=== PATIENT | female | born 1930 | race Caucasian/White ===

== ENCOUNTER 2016-11-17 10:45 | Emergency (ER) | payer OTHER ==
--- NOTE | 2016-11-17 12:58 | ED ORDER SUMMARY ---
..... Patient: AJNAE RIZZO OrderSheet [facility] VisitID: [id number] [place] [address] 86y, F Registration Date/Time: 11/17/2016 ORDER SHEET Weight: 68.0 kg (stated) Allergies: Oxycodone GENERAL ORDERS: UA-Culture if indicated Urgent (11:11/17/2016 Edi SAM) (Ack 11:08 Héctor) (11:11 SRoberts R.N.) CBC w Diff Urgent (11:11/17/2016 Edi SAM) (Ack 11:08 Héctor) (12:35 SRoberts R.N.) CMP Urgent (11:11/17/2016 Edi SAM) (Ack 11:08 Héctor) (12:35 SRoberts R.N.) CT Abd/Pel wo Cont Urgent (15:12 11/17/2016 Edi SAM) (Ack 15:18 Héctor) (16:19 SRoberts R.N.) MEDICATION ORDERS: Bactrim DS PO (Tablet 800-160 mg) 1 tab (NOW) (12:09 11/17/2016 Edi SAM) (Ack 12:58 SRoberts R.N.) (14:28 SRoberts R.N.) IV FLUIDS: IV Saline Lock (11:11/17/2016 Edi SAM) (Ack 11:11 SRoberts R.N.) (11:55 SRoberts R.N.) Dilaudid IV 1 mg (HIGH ALERT MEDICATION, NOW) (15:12 11/17/2016 Edi SAM) (Ack 15:21 SRoberts R.N.) (16:21 SRoberts R.N.) Toradol IV 30 mg (NOW) (15:12 11/17/2016 Edi SAM) (Ack 15:21 SRoberts R.N.) (16:21 SRoberts R.N.) ORDER SHEET NOTES: [Electronically signed by Theresa Valderrama R.N. (20:57 11/17/2016)] [Electronically signed by Yesenia De Leon MD (05:16 11/22/2016)] [Electronically locked/signed by Theresa Valderrama R.N. (20:57 11/17/2016)]
--- NOTE | 2016-11-17 12:58 | ED CLINICAL REPORT ---
Clinical Report - Physicians/Mid Levels [facility] [address] [place] [address] 11/17/2016 10:47 Patient: JANAE RIZZO Time Seen: 10:55. Arrived- By ambulance. Historian- patient, EMS personnel and family. HISTORY OF PRESENT ILLNESS Chief Complaint: BACK PAIN. It is described as being moderate in degree and in the area of the right flank. The quality is noted to be "pain". No radiation. Onset- about 5 days ago and it is still present. Modifying factors. Not worsened by anything. Not relieved by anything. No bladder dysfunction, bowel dysfunction, sensory loss or motor loss. Patient notes the possibility of an injury (PT thinks she fell down the stairs, but EMS states that family denied this.). No other injury. Similar symptoms previously: None. Recent medical care: Not recently seen/assessed. REVIEW OF SYSTEMS No fever, chills, eye discomfort, headache or sore throat. No cough, difficulty breathing, chest pain, skin rash or abdominal pain. No nausea, vomiting, diarrhea, black stools or difficulty with urination. No urinary frequency, hematuria or bloody stools. All systems otherwise negative, except as recorded above. PAST HISTORY Problems: Changed Mental Status. Polycythemia. Immunizations. LNMP - Last Normal Menstrual Period. Additional Surgeries: Appendectomy. Medications: Capsaicin External. HydrOXYzine HCl Oral. Antacid Oral. ALPRAZolam Oral. Ranitidine HCl Oral. Torsemide Oral. Tylenol Oral. CeleXA Oral. Allergies: No Known Drug Allergy. SOCIAL HISTORY Never smoker. No alcohol use or drug use. ADDITIONAL NOTES The nursing notes have been reviewed. PHYSICAL EXAM Vital Signs: 11/17/2016 11:06 BP: 157/69. HR: 65. RR: 20. O2 saturation: 98%. Temp: 97.8 F. Have been reviewed. Appearance: Alert. No acute distress. HEENT: Normal external inspection. Eyes: Pupils equal, round and reactive to light. Neck: Normal inspection. Neck nontender. Painless ROM. CVS: Normal heart rate and rhythm. Heart sounds normal. Pulses normal. Respiratory: No respiratory distress. Breath sounds normal. Abdomen: Normal inspection. Soft and nontender. Back: Normal inspection. No tenderness. Moderately limited ROM in the back. Skin: Skin warm and dry. Normal skin color. No rash. Normal skin turgor. Extremities: Extremities exhibit normal ROM. Extremities nontender. Neuro: Mood/affect normal. No motor deficit. No sensory deficit. LABS, X-RAYS, AND EKG Laboratory Tests: UA-Culture if indicated: (BALDEMAR: 11/17/2016 11:00) ( [facility] 11/17/2016 12:04) Final results Test Result Flag Units (Reference) URINE COLOR YELLOW URINE APPEARANCE CLEAR URINE GLUCOSE NEGATIVE (NEGATIVE) URINE BILIRUBIN NEGATIVE (NEGATIVE) URINE KETONE NEGATIVE (NEGATIVE) URINE SPECIFIC GRAVITY 1.010 (1.010-1.030) URINE PH 7.0 (5.0-8.0) URINE PROTEIN NEGATIVE (NEGATIVE) URINE UROBILINOGEN 0.2 EU/dL (0.2-1.0) URINE NITRITE POSITIVE (NEGATIVE) URINE BLOOD NEGATIVE (NEGATIVE) URINE LEUK ESTERASE POSITIVE (NEGATIVE) URINE RBC NONE SEEN rbc/hpf (0-1) URINE WBC 5-10 wbc/hpf (0-1) URINE EPITHELIAL CELLS NONE SEEN EPI/hpf (0-5) URINE BACTERIA MODERATE (2+ TO 3+) (NONE SEEN) URINE COMMENT CULTURE INDICATED URINE CULTURES ARE SET-UP BASED ON THE FOLLOWING CRITERIA:POSITIVE NITRITEPOSITIVE LEUKOCYTE ESTERASEGREATER THAN 10 WHITE BLOOD CELLSMODERATE (2+) OR GREATER BACTERIA CBC w Diff: (BALDEMAR: 11/17/2016 11:05) ( [facility] 11/17/2016 13:56) Final results Test Result Flag Units (Reference) WHITE BLOOD COUNT 25.6 *H K/uL (4.5-11.5) CRITICAL RESULTS CALLEDCalled to MIKALA CHO IN ED 11/17/16 1245Were 2 patient identifiers used? YWas the result read back? Y RED BLOOD COUNT 6.97 *H M/uL (4.00-5.20) HEMOGLOBIN 12.5 gm/dL (12.0-16.0) HEMATOCRIT 42.6 % (36.0-46.0) MEAN CELL VOLUME 61 L fL (80-100) MEAN CORPUSCULAR HGB 18 L pg (26-34) MEAN CORPUSCULAR HGB CONC 29 L g/dL (31-37) RED CELL DISTRIBUTION WIDTH 22.2 H % (11.6-14.8) PLATELET COUNT 1338 H K/uL (150-400) POLY % 88 H % (50-75) BAND % 4 % (0-8) LYMPH 5 L % (25-40) MONO 3 % (3-14) EOSINOPHIL % 0 % (0-4) BASOPHIL % 0 % (0-2) METAMYELOCYTE % 0 % (0-1) MYELOCYTE 0 % (0-1) OTHER CELL TYPE 0 HYPOCHROMIA 1+ ANISOCYTOSIS 2+ MICROCYTOSIS 1+ TARGET CELLS 1+ OVALOCYTES 1+ TOXIC GRANULATION 2+ CMP: (BALDEMAR: 11/17/2016 11:48) ( MsgRcvd 11/17/2016 16:56) Final results Test Result Flag Units (Reference) GLUCOSE 94 mg/dL (70-110) BUN 8 mg/dL (7-18) CREATININE 0.4 L mg/dL (0.6-1.3) Estimated GFR >60 mL/min Estimated GFR- >60 mL/min Note: Persistent reduction over 3 months in eGFR<60 mL/min/1.73 m2 defines CKD. Patients with eGFR values>=60 mL/min/1.73 m2 may also have CKD if evidence ofpersistent proteinuria. Additional information may be foundat www.kidney.org. SODIUM 128 L mmol/L (136-145) POTASSIUM 4.3 mmol/L (3.5-5.1) CHLORIDE 94 L mmol/L (98-107) CARBON DIOXIDE 23 mmol/L (21-32) CALCIUM 8.9 mg/dL (8.5-10.1) TOTAL PROTEIN 6.7 g/dL (6.4-8.2) ALBUMIN 3.4 g/dL (3.3-5.0) BILIRUBIN, TOTAL 0.8 mg/dL (0.0-1.0) ALKALINE PHOSPHATASE 138 H U/L (46-116) AST (SGOT) 19 U/L (15-37) ALT (SGPT) 18 U/L (12-78) . Pulse Oximetry: 11/17/2016 11:06 O2 saturation: 98%. (FIO2 - room air). Interpretation: normal. PROGRESS AND PROCEDURES Course of Care: PT appeared fairly comfortable upon arrival in the ED. She was worked up for her back pain, and found to have UTI, for which she was started on abx. I suspected arthritis, as well. Pt was not febrile, and had no abdominal or neurological findings. 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 I did discuss at length with the pt's sons her condition, as the new home to which she was being transferred today was concerned about their ability to help the pt, considering her back pain. I informed the family that pt needs to follow up with her doctor to discuss her increased platelet count, and whether she should be restarted on her hydroxurea. I spoke with the staff on the phone, and they stated they could do transfers requiring the assistance of once staff member. As such, the sons and I agreed that the pt would be given a reasonable dose of analgesia, and then allowed to use the bedside commode, as a test of her ability to perform similar tasks at home. This was done, and pt was able to transfer with minimal help from even one nurse. No emergent condition was identifed. Family counseled in person several times regarding the patient's stable condition, test results, diagnosis and need for follow-up. Concerns were addressed. Old medical records reviewed. Disposition: Discharged. Condition: stable and improved. CLINICAL IMPRESSION Chronic back pain. (with acute exacerbation). Acute urinary tract infection with cystitis. (Myelodysplastic disorder). INSTRUCTIONS Warnings: SEDATIVE MEDICATION: You were given sedative medication during your visit. Do not drive or operate dangerous machinery. GENERAL WARNINGS: Return or contact your physician immediately if your condition worsens or changes unexpectedly, if not improving as expected, or if other problems arise. Prescription Medications: Hydrocodone/APAP 5mg / 325mg: take 1-2 orally every 6 hours as needed for pain. Dispense twenty (20). No refill. Ibuprofen 800 mg tablets: take 1 tablet orally every 8 hours as needed for pain. Dispense twenty (20). No refill. Septra DS 800 mg / 160 mg: take 1 tablet orally every 12 hours for 7 days. No refill. Substitution is permissible. Understanding of the discharge instructions verbalized by patient and family. Discharge instructions reviewed with and understanding was verbalized by caregiver. Follow-up with: Padilla Khanna MD, [facility], , [facility], [address] [place] [address] Follow up. Call for the next available appointment. Reason for referral: Establish care and follow up ER visit. (Electronically signed by Yesenia De Leon MD 11/22/2016 5:16)
--- NOTE | 2016-11-17 12:58 | ED ORDER SUMMARY ---
..... Patient: JANAE RIZZO OrderSheet [facility] VisitID: [id number] [place] [address] 86y, F Registration Date/Time: 11/17/2016 ORDER SHEET Weight: 68.0 kg (stated) Allergies: Oxycodone GENERAL ORDERS: UA-Culture if indicated Urgent (11:11/17/2016 Edi SAM) (Ack 11:08 Héctor) (11:11 SRoberts R.N.) CBC w Diff Urgent (11:11/17/2016 Edi SAM) (Ack 11:08 Héctor) (12:35 SRoberts R.N.) CMP Urgent (11:11/17/2016 Edi SAM) (Ack 11:08 Héctor) (12:35 SRoberts R.N.) CT Abd/Pel wo Cont Urgent (15:12 11/17/2016 Edi SAM) (Ack 15:18 Héctor) (16:19 SRoberts R.N.) MEDICATION ORDERS: Bactrim DS PO (Tablet 800-160 mg) 1 tab (NOW) (12:09 11/17/2016 Edi SAM) (Ack 12:58 SRoberts R.N.) (14:28 SRoberts R.N.) IV FLUIDS: IV Saline Lock (11:11/17/2016 Edi SAM) (Ack 11:11 SRoberts R.N.) (11:55 SRoberts R.N.) Dilaudid IV 1 mg (HIGH ALERT MEDICATION, NOW) (15:12 11/17/2016 Edi SAM) (Ack 15:21 SRoberts R.N.) (16:21 SRoberts R.N.) Toradol IV 30 mg (NOW) (15:12 11/17/2016 Edi SAM) (Ack 15:21 SRoberts R.N.) (16:21 SRoberts R.N.) ORDER SHEET NOTES: [Electronically signed by Theresa Valderrama R.N. (20:57 11/17/2016)] [Electronically signed by Yesenia De Leon MD (05:16 11/22/2016)] [Electronically locked/signed by Theresa Valderrama R.N. (20:57 11/17/2016)]
--- NOTE | 2016-11-17 12:58 | ED CLINICAL REPORT ---
Clinical Report - Physicians/Mid Levels [facility] [address] [place] [address] 11/17/2016 10:47 Patient: JANAE RIZZO Time Seen: 10:55. Arrived- By ambulance. Historian- patient, EMS personnel and family. HISTORY OF PRESENT ILLNESS Chief Complaint: BACK PAIN. It is described as being moderate in degree and in the area of the right flank. The quality is noted to be "pain". No radiation. Onset- about 5 days ago and it is still present. Modifying factors. Not worsened by anything. Not relieved by anything. No bladder dysfunction, bowel dysfunction, sensory loss or motor loss. Patient notes the possibility of an injury (PT thinks she fell down the stairs, but EMS states that family denied this.). No other injury. Similar symptoms previously: None. Recent medical care: Not recently seen/assessed. REVIEW OF SYSTEMS No fever, chills, eye discomfort, headache or sore throat. No cough, difficulty breathing, chest pain, skin rash or abdominal pain. No nausea, vomiting, diarrhea, black stools or difficulty with urination. No urinary frequency, hematuria or bloody stools. All systems otherwise negative, except as recorded above. PAST HISTORY Problems: Changed Mental Status. Polycythemia. Immunizations. LNMP - Last Normal Menstrual Period. Additional Surgeries: Appendectomy. Medications: Capsaicin External. HydrOXYzine HCl Oral. Antacid Oral. ALPRAZolam Oral. Ranitidine HCl Oral. Torsemide Oral. Tylenol Oral. CeleXA Oral. Allergies: No Known Drug Allergy. SOCIAL HISTORY Never smoker. No alcohol use or drug use. ADDITIONAL NOTES The nursing notes have been reviewed. PHYSICAL EXAM Vital Signs: 11/17/2016 11:06 BP: 157/69. HR: 65. RR: 20. O2 saturation: 98%. Temp: 97.8 F. Have been reviewed. Appearance: Alert. No acute distress. HEENT: Normal external inspection. Eyes: Pupils equal, round and reactive to light. Neck: Normal inspection. Neck nontender. Painless ROM. CVS: Normal heart rate and rhythm. Heart sounds normal. Pulses normal. Respiratory: No respiratory distress. Breath sounds normal. Abdomen: Normal inspection. Soft and nontender. Back: Normal inspection. No tenderness. Moderately limited ROM in the back. Skin: Skin warm and dry. Normal skin color. No rash. Normal skin turgor. Extremities: Extremities exhibit normal ROM. Extremities nontender. Neuro: Mood/affect normal. No motor deficit. No sensory deficit. LABS, X-RAYS, AND EKG Laboratory Tests: UA-Culture if indicated: (BALDEMAR: 11/17/2016 11:00) ( [facility] 11/17/2016 12:04) Final results Test Result Flag Units (Reference) URINE COLOR YELLOW URINE APPEARANCE CLEAR URINE GLUCOSE NEGATIVE (NEGATIVE) URINE BILIRUBIN NEGATIVE (NEGATIVE) URINE KETONE NEGATIVE (NEGATIVE) URINE SPECIFIC GRAVITY 1.010 (1.010-1.030) URINE PH 7.0 (5.0-8.0) URINE PROTEIN NEGATIVE (NEGATIVE) URINE UROBILINOGEN 0.2 EU/dL (0.2-1.0) URINE NITRITE POSITIVE (NEGATIVE) URINE BLOOD NEGATIVE (NEGATIVE) URINE LEUK ESTERASE POSITIVE (NEGATIVE) URINE RBC NONE SEEN rbc/hpf (0-1) URINE WBC 5-10 wbc/hpf (0-1) URINE EPITHELIAL CELLS NONE SEEN EPI/hpf (0-5) URINE BACTERIA MODERATE (2+ TO 3+) (NONE SEEN) URINE COMMENT CULTURE INDICATED URINE CULTURES ARE SET-UP BASED ON THE FOLLOWING CRITERIA:POSITIVE NITRITEPOSITIVE LEUKOCYTE ESTERASEGREATER THAN 10 WHITE BLOOD CELLSMODERATE (2+) OR GREATER BACTERIA CBC w Diff: (BALDEMAR: 11/17/2016 11:05) ( [facility] 11/17/2016 13:56) Final results Test Result Flag Units (Reference) WHITE BLOOD COUNT 25.6 *H K/uL (4.5-11.5) CRITICAL RESULTS CALLEDCalled to MIKALA CHO IN ED 11/17/16 1245Were 2 patient identifiers used? YWas the result read back? Y RED BLOOD COUNT 6.97 *H M/uL (4.00-5.20) HEMOGLOBIN 12.5 gm/dL (12.0-16.0) HEMATOCRIT 42.6 % (36.0-46.0) MEAN CELL VOLUME 61 L fL (80-100) MEAN CORPUSCULAR HGB 18 L pg (26-34) MEAN CORPUSCULAR HGB CONC 29 L g/dL (31-37) RED CELL DISTRIBUTION WIDTH 22.2 H % (11.6-14.8) PLATELET COUNT 1338 H K/uL (150-400) POLY % 88 H % (50-75) BAND % 4 % (0-8) LYMPH 5 L % (25-40) MONO 3 % (3-14) EOSINOPHIL % 0 % (0-4) BASOPHIL % 0 % (0-2) METAMYELOCYTE % 0 % (0-1) MYELOCYTE 0 % (0-1) OTHER CELL TYPE 0 HYPOCHROMIA 1+ ANISOCYTOSIS 2+ MICROCYTOSIS 1+ TARGET CELLS 1+ OVALOCYTES 1+ TOXIC GRANULATION 2+ CMP: (BALDEMAR: 11/17/2016 11:48) ( MsgRcvd 11/17/2016 16:56) Final results Test Result Flag Units (Reference) GLUCOSE 94 mg/dL (70-110) BUN 8 mg/dL (7-18) CREATININE 0.4 L mg/dL (0.6-1.3) Estimated GFR >60 mL/min Estimated GFR- >60 mL/min Note: Persistent reduction over 3 months in eGFR<60 mL/min/1.73 m2 defines CKD. Patients with eGFR values>=60 mL/min/1.73 m2 may also have CKD if evidence ofpersistent proteinuria. Additional information may be foundat www.kidney.org. SODIUM 128 L mmol/L (136-145) POTASSIUM 4.3 mmol/L (3.5-5.1) CHLORIDE 94 L mmol/L (98-107) CARBON DIOXIDE 23 mmol/L (21-32) CALCIUM 8.9 mg/dL (8.5-10.1) TOTAL PROTEIN 6.7 g/dL (6.4-8.2) ALBUMIN 3.4 g/dL (3.3-5.0) BILIRUBIN, TOTAL 0.8 mg/dL (0.0-1.0) ALKALINE PHOSPHATASE 138 H U/L (46-116) AST (SGOT) 19 U/L (15-37) ALT (SGPT) 18 U/L (12-78) . Pulse Oximetry: 11/17/2016 11:06 O2 saturation: 98%. (FIO2 - room air). Interpretation: normal. PROGRESS AND PROCEDURES Course of Care: PT appeared fairly comfortable upon arrival in the ED. She was worked up for her back pain, and found to have UTI, for which she was started on abx. I suspected arthritis, as well. Pt was not febrile, and had no abdominal or neurological findings. 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 I did discuss at length with the pt's sons her condition, as the new home to which she was being transferred today was concerned about their ability to help the pt, considering her back pain. I informed the family that pt needs to follow up with her doctor to discuss her increased platelet count, and whether she should be restarted on her hydroxurea. I spoke with the staff on the phone, and they stated they could do transfers requiring the assistance of once staff member. As such, the sons and I agreed that the pt would be given a reasonable dose of analgesia, and then allowed to use the bedside commode, as a test of her ability to perform similar tasks at home. This was done, and pt was able to transfer with minimal help from even one nurse. No emergent condition was identifed. Family counseled in person several times regarding the patient's stable condition, test results, diagnosis and need for follow-up. Concerns were addressed. Old medical records reviewed. Disposition: Discharged. Condition: stable and improved. CLINICAL IMPRESSION Chronic back pain. (with acute exacerbation). Acute urinary tract infection with cystitis. (Myelodysplastic disorder). INSTRUCTIONS Warnings: SEDATIVE MEDICATION: You were given sedative medication during your visit. Do not drive or operate dangerous machinery. GENERAL WARNINGS: Return or contact your physician immediately if your condition worsens or changes unexpectedly, if not improving as expected, or if other problems arise. Prescription Medications: Hydrocodone/APAP 5mg / 325mg: take 1-2 orally every 6 hours as needed for pain. Dispense twenty (20). No refill. Ibuprofen 800 mg tablets: take 1 tablet orally every 8 hours as needed for pain. Dispense twenty (20). No refill. Septra DS 800 mg / 160 mg: take 1 tablet orally every 12 hours for 7 days. No refill. Substitution is permissible. Understanding of the discharge instructions verbalized by patient and family. Discharge instructions reviewed with and understanding was verbalized by caregiver. Follow-up with: Padilla Khanna MD, [facility], , [facility], [address] [place] [address] Follow up. Call for the next available appointment. Reason for referral: Establish care and follow up ER visit. (Electronically signed by Yesenia De Leon MD 11/22/2016 5:16)
--- NOTE | 2016-11-17 12:58 | ED NURSING NOTES ---
Clinical Report - Nurses [facility] [address] [place] [address] 11/17/2016 10:47 Patient: JANAE VILLANUEVA TRIAGE Triage time 10:45 Nov 17 2016. Acuity: LEVEL 3. Chief Complaint: BACK PAIN. Alert. --11:05 Eliseo Jensen R.N. 11:06 11/17/16. BP: 157/69. HR: 65. RR: 20. O2 saturation: 98% on room air. Temp: 97.8 F (oral). --11:08 Kadie Valderrama R.N. Weight: 68 kg stated. Height/Length: 62 inches Estimated. BMI: 27.4. --10:49 Eliseo Jensen R.N. Medications ALPRAZolam Oral 0.5 mg, 2x a day as needed. --11:00 Kadie Valderrama R.N. CeleXA Oral. --11:00 Eliseo Jensen R.N. Ranitidine HCl Oral. Torsemide Oral. Tylenol Oral. --11:00 Eliseo Jensen R.N. Antacid Oral, 2x a day as needed. --11:00 Kadie Valderrama R.N. HydrOXYzine HCl Oral. --11:00 Eliseo Jensen R.N. Capsaicin External (Cream 0.025 %), as needed. --11:01 Kadie Valderrama R.N. The following entry was struck and corrected by Kadie Valderrama R.N., 12:34 (11/17/16) Reason for correction - other(correction). <<STRICKEN ENTRY-- Capsaicin External. --11:01 Eliseo Jensen R.N. --END STRIKE>> The following entry was struck and corrected by Kadie Valderrama R.N., 12:32 (11/17/16) Reason for correction - other(correction). <<STRICKEN ENTRY-- Antacid Oral. --11:00 Eliseo Jensen R.N. --END STRIKE>> The following entry was struck and corrected by Kadie Valderrama R.N., 12:32 (11/17/16) Reason for correction - other(correction). <<STRICKEN ENTRY-- ALPRAZolam Oral. --11:00 Eliseo Jensen R.N. --END STRIKE>>. Allergies Oxycodone. --12:30 Kadie Valderrama R.N. The following entry was struck by Kadie Valderrama R.N., 12:30 (11/17/16) Reason - other. <<STRICKEN ENTRY-- No Known Drug Allergy. --10:49 Eliseo Jensen R.N. --END STRIKE>>. History Arrived (AID 47). ( MID-BACK PAIN. Pt states that she fell down stairs 5 days ago. Staff at [facility] told EMS that they have no record of her falling). Onset. (about 5 days ago). History of recent trauma- (Possible-GLF(?)). ( Uses a WC.). Treatment [employer]NAGER: None. SOCIAL HX: No infectious disease exposure. ABUSE ASSESSMENT: No report of abuse. FALL RISK ASSESSMENT: Fall risk assessment completed. No fall risk identified. NUTRITIONAL RISK ASSESSMENT: The nutritional risk assessment revealed no deficiencies. FUNCTIONAL ASSESSMENT: Functional assessment: no impairments noted. LEARNING NEEDS ASSESSMENT: The learning needs assessment revealed no barriers. SKIN INTEGRITY ASSESSMENT: Skin integrity risk assessment completed. No skin integrity risk identified. --11:05 Eliseo Jensen R.N. Interventions ID band on patient. To treatment room. --11:05 Eliseo Jensen R.N. PHYSICAL ASSESSMENT To room via stretcher. Patient gowned. GENERAL / NEURO / PSYCH: Alert. Appears in pain and anxious. RESPIRATORY: Respirations not labored. CVS: Capillary refill less than 2 seconds. GI / : Abdomen nontender. EXTREMITIES: Sensation intact in extremities. ROM of extremities within normal limits. BACK: Limited ROM of the back. --11:09 Kadie Valderrama R.N. NURSING PROGRESS NOTES Patient gowned. Head of bed elevated. Two patient identifiers checked. Call light placed in reach. Side rails up x 2. Bed placed in lowest position. Brakes of bed on. Patient ready for evaluation. --11:09 Kadie Valderrama R.N. 11:20 11/17/2016 Site #1 started via IV in the left hand with an 22g angiocath, with aseptic technique and good blood return; two attempts. Saline lock flushed with 10 mL saline (Lab to draw blood.). --11:55 Kadie Valderrama R.N. 11:00. 5 fr in/out catheterization. During procedure hand hygiene observed and sterile equipment and aseptic technique used. Return of yellow-colored clear urine. She tolerated procedure well. --11:57 Nikky Patton R.N. Critical value received by kadie. WBC: 25.6. Critical value read back. Verified lab result and patient ID. ED physician notifed of critical value. --12:45 Kadie Valderrama R.N. Critical value relayed to ED by Sulma. Critical value received by kadie. RBC 6.97. Platelets: 1, 338. ED physician notifed of critical value. --12:48 Kadie Valderrama R.N. 13:30. ( Spoke with the son, Darius Villanueva, re discharge of the patient. Son stated that the patient was to be transported to [facility], Darrell Kincaid, youth care specialist. I spoke with Darrell, who stated that he was not willing to take the patient, at this time. I called the son back, relaying the message. I told the son that she had been discharged on antibiotics for a UTI. Son planned to call the family home and speak with Darrell, and get back to us.). --14:02 Kadie Valderrama R.N. 14:17 11/17/16. BP: 154/76. HR: 65. RR: 16. O2 saturation: 97% on room air. 13:13 11/17/16. BP: 138/79. HR: 79. RR: 18. O2 saturation: 96% on room air. 12:01 11/17/16. BP: 142/78. HR: 80. RR: 18. O2 saturation: 97% on room air. 11:06 11/17/16. BP: 157/69. HR: 65. RR: 20. O2 saturation: 98% on room air. Temp: 97.8 F (oral). --14:27 Kadie Valderrama R.N. Visitor at bedside (Son at the bedside, Dr to speak with him.). --14:28 Kadie Valderrama R.N. 13:05 11/17/2016 Bactrim DS (Sulfamethoxazole-TMP DS) PO 1 tab given. Allergies verified and confirmed 5 rights. --14:28 Kadie Valderrama R.N. 15:20 11/17/2016 Toradol IVP 15 mg given over 1 minute(s) via site #1. Allergies verified and confirmed 5 rights. IV patency established. IV site checked: no pain, redness, or swelling. IV flushed thoroughly pre- and post-medication administration. IVP given by RN. --16:21 Kadie Valderrama R.N. 15:21 11/17/2016 Dilaudid (HYDROmorphone HCl PF) IVP 0.5 mg given over 1 minute(s) via site #1. Allergies verified, confirmed 5 rights and sedative warning given to the patient. IV patency established. IV site checked: no pain, redness, or swelling. IV flushed thoroughly pre- and post-medication administration. IVP given by RN. --16:21 Kadie Valderrama R.N. 16:22 11/17/2016 Dilaudid (HYDROmorphone HCl PF) IVP 0.5 mg given over 1 minute(s) via site #1. Allergies verified, confirmed 5 rights and sedative warning given to the patient. IV patency established. IV site checked: no pain, redness, or swelling. IV flushed thoroughly pre- and post-medication administration. IVP given by RN. --16:22 Kadie Valderrama R.N. Assisted patient to bedside commode and back to bed; tolerated well. --16:24 Kadie Valderrama R.N. 18:16 11/17/16. BP: 150/74. HR: 74. RR: 16. O2 saturation: 97% on room air. Temp: deferred. Pain level now: 0. 16:16 11/17/16. BP: 142/74. HR: 88. RR: 18. O2 saturation: 98% on room air. Pain level now: 10/01. --20:47 Kadie Valderrama R.N. 17:00. ( Patient assisted by one person to get out of bed and transfer to the commode, next to the bed. Patient only required verbal direction, and standby. Voided in the commode, w/o difficulty, approximately 500ml total in the ED output.). --20:53 Kadie Valderrama R.N. 17:45. ( After several extensive calls with the sons, and the family home agreed for the patient to transfer there, [facility].). --20:45 Kadie Valderrama R.N. DISPOSITION / DISCHARGE 18:40. Condition at departure: improved. ( Patient sitting up at the bedside eating a sandwich and milk. Pt stated, "I'm not hurting at all, I feel real good".). Ability to learn limited by poor cooperation; teaching performed with the patient. Discharge instructions provided and reviewed (Paperwork sent to the family home .). Written instructions provided in Bulgarian. The patient was discharged ([facility].) and accompanied by Transfer team. She left the Emergency Department via ambulance. Medication list reviewed and validated. --20:56 Kadie Valderrama R.N. 18:16 11/17/16. BP: 150/74. HR: 74. RR: 16. O2 saturation: 97% on room air. Temp: deferred. Pain level now: 0/10. 16:16 11/17/16. BP: 142/74. HR: 88. RR: 18. O2 saturation: 98% on room air. Pain level now: 1/10. 14:17 11/17/16. BP: 154/76. HR: 65. RR: 16. O2 saturation: 97% on room air. 13:13 11/17/16. BP: 138/79. HR: 79. RR: 18. O2 saturation: 96% on room air. 12:01 11/17/16. BP: 142/78. HR: 80. RR: 18. O2 saturation: 97% on room air. 11:06 11/17/16. BP: 157/69. HR: 65. RR: 20. O2 saturation: 98% on room air. Temp: 97.8 F (oral). --20:56 Kadie Valderrama R.N. Locked/Released at 11/17/2016 20:57 by Kadie Valderrama R.N.
--- NOTE | 2016-11-17 16:45 | DIAGNOSTIC IMAGING REPORT ---
PROCEDURE: CT ABDOMEN/PELVIS W/O CONTRAST INDICATION: FLANK PAIN TECHNIQUE: Axial CT images were obtained through the abdomen and pelvis without IV contrast. Coronal and sagittal reformations were created. COMPARISON: None. FINDINGS: Moderate respiratory motion, atelectasis, and granulomatous changes at the lung bases. Moderate cardiomegaly. Very small hiatal hernia. Moderate splenomegaly. The spleen measures 13.7 cm in AP diameter by 15.4 cm in craniocaudal dimension. Hydropic gallbladder. The unenhanced appearance of the liver, pancreas, adrenal glands, and kidneys is normal. Normal caliber retroperitoneal vessels with trace aortic atherosclerosis. No suspicious retroperitoneal mass. Stomach and upper bowel loops are unremarkable. There is a left inguinal hernia which contains a loop of small bowel. A few anteriorly layering small bowel loops are prominent but no evidence of significant small bowel obstruction. Trace amount of fluid in the hernia sac, nonspecific. No significant inflammation. Moderate amount of retained stool throughout the colon. The unenhanced appearance of the uterus, distended urinary bladder, and pelvic vessels is normal. Moderately severe S-shaped scoliosis of the lower thoracic and lumbar spine as well as grade 1 anterolisthesis of L4-5 with postsurgical changes in the posterior elements. Severe compression fracture of T7, appears chronic. IMPRESSION: 1. No urinary calcification or evidence of obstructive uropathy. Unable to exclude pyelonephritis without contrast. 2. Bowel containing left inguinal hernia without significant inflammatory or obstructive changes. Correlate clinically to determine significance. 3. Splenomegaly. The patient has a known history of hematology disorder. 4. Findings called to the emergency room. All CT scans at this facility use dose modulation, iterative reconstruction, and/or weight-based dosing when appropriate to reduce radiation dose to as low as reasonably achievable.
--- NOTE | 2016-11-22 05:16 | ED MED RECONCILIATION SUMMARY ---
Patient: JANAE RIZZO Medication Reconciliation Report [facility] VisitID: [id number] [address] [place] [address] 86y, F Registration Date/Time: 11/17/2016 Weight: 68.0 kg Height/Length: 62 in. BMI: 27.4 ALLERGIES: Oxycodone The patient's Home Medications are listed below: THE FOLLOWING MEDICATIONS NEED TO BE RECONCILED: ALPRAZolam Oral 0.5 mg, 2x a day Antacid Oral, 2x a day Capsaicin External (0.025 %) CeleXA Oral HydrOXYzine HCl Oral Ranitidine HCl Oral Torsemide Oral Tylenol Oral The source(s) of the original Home Medication information: Not obtained. The following Medications were given to the patient in the Emergency Department: Bactrim DS [PO] PO 1 tab, administered: 11/17/2016 1:05:00 PM Toradol [IVP] IVP 15 mg, administered: 11/17/2016 3:20:00 PM Dilaudid [IVP] IVP 0.5 mg, administered: 11/17/2016 3:21:00 PM Dilaudid [IVP] IVP 0.5 mg, administered: 11/17/2016 4:22:00 PM The following Medications were prescribed to the patient: Hydrocodone/APAP 5mg / 325mg: take 1-2 orally every 6 hours as needed for pain. Dispense twenty (20). No refill. -- Yesenia De Leon MD Ibuprofen 800 mg tablets: take 1 tablet orally every 8 hours as needed for pain. Dispense twenty (20). No refill. -- Yesenia De Leon MD Septra DS 800 mg / 160 mg: take 1 tablet orally every 12 hours for 7 days. No refill. Substitution is permissible. -- Yesenia De Leon MD
--- NOTE | 2016-11-22 05:16 | ED DISCHARGE INSTRUCTIONS ---
Patient: JANAE RIZZO General Instructions [facility] VisitID: [id number] [address] [place] [address] 86y, F Registration Date/Time: 11/17/2016 Chronic back pain. (with acute exacerbation). Acute urinary tract infection with cystitis. (Myelodysplastic disorder). INSTRUCTIONS Warnings: SEDATIVE MEDICATION: You were given sedative medication during your visit. Do not drive or operate dangerous machinery. GENERAL WARNINGS: Return or contact your physician immediately if your condition worsens or changes unexpectedly, if not improving as expected, or if other problems arise. Prescription Medications: Hydrocodone/APAP 5mg / 325mg: take 1-2 orally every 6 hours as needed for pain. Dispense twenty (20). No refill. Ibuprofen 800 mg tablets: take 1 tablet orally every 8 hours as needed for pain. Dispense twenty (20). No refill. Septra DS 800 mg / 160 mg: take 1 tablet orally every 12 hours for 7 days. No refill. Substitution is permissible. Understanding of the discharge instructions verbalized by patient and family. Discharge instructions reviewed with and understanding was verbalized by caregiver. Follow-up with: Padilla Khanna MD, [facility], , [facility], [address] [place] [address] Follow up. Call for the next available appointment. Reason for referral: Establish care and follow up ER visit. ADDITIONAL INFORMATION Bladder Infection,Female (Adult) A bladder infection ("cystitis" or "UTI") usually causes a constant urge to urinate and a burning when passing urine. Urine may be cloudy, smelly or dark. There may be pain in the lower abdomen. A bladder infection occurs when bacteria from the vaginal area enter the bladder opening (urethra). This can occur from sexual intercourse, wearing tight clothing, dehydration and other factors. Home Care: Drink lots of fluids (at least 6-8 glasses a day, unless you must restrict fluids for other medical reasons). This will force the medicine into your urinary system and flush the bacteria out of your body. Avoid sexual intercourse until your symptoms are gone. Avoid caffeine, alcohol and spicy foods. These can irritate the bladder. A bladder infection is treated with antibiotics. You may also be given Pyridium (generic = phenazopyridine) to reduce the burning sensation. This medicine will cause your urine to become a bright orange color. The orange urine may stain clothing. You may wear a pad or panty-liner to protect clothing. Preventing Future Infections: Always wipe from front to back after a bowel movement. Keep the genital area clean and dry. Drink plenty of fluids each day to avoid dehydration. Both sexual partners should wash before intercourse. Urinate right after intercourse to flush out the bladder. Wear cotton underwear and cotton-lined panty hose; avoid tight-fitting pants. If you are on control pills and are having frequent bladder infections, discuss with your doctor. Follow Up: Return to this facility or see your doctor if ALL symptoms are not gone after three days of treatment. Get Prompt Medical Attention if any of the following occur: Fever of 100.4F (38C) or higher, or as directed by your healthcare provider No improvement by the third day of treatment Increasing back or abdominal pain Repeated vomiting; unable to keep medicine down Weakness, dizziness or fainting Vaginal discharge Pain, redness or swelling in the labia (outer vaginal area) You have been given the following additional information: Bladder Infection, Female (Adult) (Electronically signed by Yesenai De Leon MD 11/22/2016 5:16)
--- NOTE | 2016-11-22 05:16 | ED MED RECONCILIATION SUMMARY ---
Patient: JANAE RIZZO Medication Reconciliation Report [facility] VisitID: [id number] [address] [place] [address] 86y, F Registration Date/Time: 11/17/2016 Weight: 68.0 kg Height/Length: 62 in. BMI: 27.4 ALLERGIES: Oxycodone The patient's Home Medications are listed below: THE FOLLOWING MEDICATIONS NEED TO BE RECONCILED: ALPRAZolam Oral 0.5 mg, 2x a day Antacid Oral, 2x a day Capsaicin External (0.025 %) CeleXA Oral HydrOXYzine HCl Oral Ranitidine HCl Oral Torsemide Oral Tylenol Oral The source(s) of the original Home Medication information: Not obtained. The following Medications were given to the patient in the Emergency Department: Bactrim DS [PO] PO 1 tab, administered: 11/17/2016 1:05:00 PM Toradol [IVP] IVP 15 mg, administered: 11/17/2016 3:20:00 PM Dilaudid [IVP] IVP 0.5 mg, administered: 11/17/2016 3:21:00 PM Dilaudid [IVP] IVP 0.5 mg, administered: 11/17/2016 4:22:00 PM The following Medications were prescribed to the patient: Hydrocodone/APAP 5mg / 325mg: take 1-2 orally every 6 hours as needed for pain. Dispense twenty (20). No refill. -- Yesenia De Leon MD Ibuprofen 800 mg tablets: take 1 tablet orally every 8 hours as needed for pain. Dispense twenty (20). No refill. -- Yesenia De Leon MD Septra DS 800 mg / 160 mg: take 1 tablet orally every 12 hours for 7 days. No refill. Substitution is permissible. -- Yesenia De Leon MD
--- NOTE | 2016-11-22 05:16 | ED MAR SUMMARY ---
..... Medication Administration Record [facility] [address] [place] [address] Patient: JANAE RIZZO Visit ID: [id number] 86y, F Weight: 68.0 kg Height/Length: 62 in BMI: 27.4 ALLERGIES: Oxycodone Given 13:05 11/17/2016 Theresa Valderrama R.N. Medication Administered: BACTRIM DS [PO] (SULFAMETHOXAZOLE-TMP DS), Dose: 1 tab PO. Medication Ordered: Bactrim DS PO (Tablet 800-160 mg) 1 tab (NOW). Given 15:20 11/17/2016 Theresa Valderrama R.N. Medication Administered: TORADOL [IVP], Dose: 15 mg IVP over 1 minute(s), Site: #1 left hand. Medication Ordered: Toradol IV 30 mg (NOW). Given 15:21 11/17/2016 Theresa Valderrama R.N. Medication Administered: DILAUDID [IVP] (HYDROMORPHONE HCL PF), Dose: 0.5 mg IVP over 1 minute(s), Site: #1 left hand. Medication Ordered: Dilaudid IV 1 mg (HIGH ALERT MEDICATION, NOW). Given 16:22 11/17/2016 Theresa Valderrama R.N. Medication Administered: DILAUDID [IVP] (HYDROMORPHONE HCL PF), Dose: 0.5 mg IVP over 1 minute(s), Site: #1 left hand. Medication Ordered: Dilaudid IV 1 mg (HIGH ALERT MEDICATION, NOW).
--- NOTE | 2016-11-22 05:16 | ED DISCHARGE INSTRUCTIONS ---
Patient: JANAE RIZZO General Instructions [facility] VisitID: [id number] [address] [place] [address] 86y, F Registration Date/Time: 11/17/2016 Chronic back pain. (with acute exacerbation). Acute urinary tract infection with cystitis. (Myelodysplastic disorder). INSTRUCTIONS Warnings: SEDATIVE MEDICATION: You were given sedative medication during your visit. Do not drive or operate dangerous machinery. GENERAL WARNINGS: Return or contact your physician immediately if your condition worsens or changes unexpectedly, if not improving as expected, or if other problems arise. Prescription Medications: Hydrocodone/APAP 5mg / 325mg: take 1-2 orally every 6 hours as needed for pain. Dispense twenty (20). No refill. Ibuprofen 800 mg tablets: take 1 tablet orally every 8 hours as needed for pain. Dispense twenty (20). No refill. Septra DS 800 mg / 160 mg: take 1 tablet orally every 12 hours for 7 days. No refill. Substitution is permissible. Understanding of the discharge instructions verbalized by patient and family. Discharge instructions reviewed with and understanding was verbalized by caregiver. Follow-up with: Padilla Khanna MD, [facility], , [facility], [address] [place] [address] Follow up. Call for the next available appointment. Reason for referral: Establish care and follow up ER visit. ADDITIONAL INFORMATION Bladder Infection,Female (Adult) A bladder infection ("cystitis" or "UTI") usually causes a constant urge to urinate and a burning when passing urine. Urine may be cloudy, smelly or dark. There may be pain in the lower abdomen. A bladder infection occurs when bacteria from the vaginal area enter the bladder opening (urethra). This can occur from sexual intercourse, wearing tight clothing, dehydration and other factors. Home Care: Drink lots of fluids (at least 6-8 glasses a day, unless you must restrict fluids for other medical reasons). This will force the medicine into your urinary system and flush the bacteria out of your body. Avoid sexual intercourse until your symptoms are gone. Avoid caffeine, alcohol and spicy foods. These can irritate the bladder. A bladder infection is treated with antibiotics. You may also be given Pyridium (generic = phenazopyridine) to reduce the burning sensation. This medicine will cause your urine to become a bright orange color. The orange urine may stain clothing. You may wear a pad or panty-liner to protect clothing. Preventing Future Infections: Always wipe from front to back after a bowel movement. Keep the genital area clean and dry. Drink plenty of fluids each day to avoid dehydration. Both sexual partners should wash before intercourse. Urinate right after intercourse to flush out the bladder. Wear cotton underwear and cotton-lined panty hose; avoid tight-fitting pants. If you are on control pills and are having frequent bladder infections, discuss with your doctor. Follow Up: Return to this facility or see your doctor if ALL symptoms are not gone after three days of treatment. Get Prompt Medical Attention if any of the following occur: Fever of 100.4F (38C) or higher, or as directed by your healthcare provider No improvement by the third day of treatment Increasing back or abdominal pain Repeated vomiting; unable to keep medicine down Weakness, dizziness or fainting Vaginal discharge Pain, redness or swelling in the labia (outer vaginal area) You have been given the following additional information: Bladder Infection, Female (Adult) (Electronically signed by Yesenia De Leon MD 11/22/2016 5:16)
--- NOTE | 2016-11-22 05:16 | ED MAR SUMMARY ---
..... Medication Administration Record [facility] [address] [place] [address] Patient: JANAE RIZZO Visit ID: [id number] 86y, F Weight: 68.0 kg Height/Length: 62 in BMI: 27.4 ALLERGIES: Oxycodone Given 13:05 11/17/2016 Theresa Valderrama R.N. Medication Administered: BACTRIM DS [PO] (SULFAMETHOXAZOLE-TMP DS), Dose: 1 tab PO. Medication Ordered: Bactrim DS PO (Tablet 800-160 mg) 1 tab (NOW). Given 15:20 11/17/2016 Theresa Valderrama R.N. Medication Administered: TORADOL [IVP], Dose: 15 mg IVP over 1 minute(s), Site: #1 left hand. Medication Ordered: Toradol IV 30 mg (NOW). Given 15:21 11/17/2016 Theresa Valderrama R.N. Medication Administered: DILAUDID [IVP] (HYDROMORPHONE HCL PF), Dose: 0.5 mg IVP over 1 minute(s), Site: #1 left hand. Medication Ordered: Dilaudid IV 1 mg (HIGH ALERT MEDICATION, NOW). Given 16:22 11/17/2016 Theresa Valderrama R.N. Medication Administered: DILAUDID [IVP] (HYDROMORPHONE HCL PF), Dose: 0.5 mg IVP over 1 minute(s), Site: #1 left hand. Medication Ordered: Dilaudid IV 1 mg (HIGH ALERT MEDICATION, NOW).
== END 2016-11-17 18:40 | disposition short-term general hospital (02) ==
LOC: ED SRH 10:45
DX: N30.00 Acute cystitis without hematuria (principal); M54.9 Dorsalgia, unspecified; G89.29 Other chronic pain; D46.9 Myelodysplastic syndrome, unspecified; Z79.899 Other long term (current) drug therapy; Z79.1 Long term (current) use of non-steroidal anti-inflammatories (NSAID)
CPT/HCPCS: 81460; 90004; 90100; 90148; 90469; 91643; 95059